=== PATIENT | male | born 1955 | race Two or more races ===

== ENCOUNTER 2018-01-30 10:46 | Emergency (ER) | payer OTHER ==
[2018-01-30 10:52] VITALS: PULSE 84; TEMP 97.8; BMI 24.0
--- NOTE | 2018-01-30 11:00 | PDOC ---
History of Present Illness - General Chief Complaint: Blood Sugar Problem Stated Complaint: BLOOD SUGAR PROBLEM - History of Present Illness Initial Comments: 01/30/18 10:57 62-year-old male with a history of insulin-dependent diabetes, hypertension, hyperlipidemia presents the emergency department with hyperglycemia. 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 Patient denies any symptoms of fevers, chills, abdominal pain, nausea or vomiting. The patient reports he ate apple pie for breakfast a few hours ago. He takes glipizide twice a day as well as Lantus at night and regular insulin at night depending on what his blood sugars. When he woke up this morning prior to breakfast his blood glucose was in the 100s. Denies chest pain, shortness of breath, dizziness, headache, focal weakness or numbness. Past History - Past Medical History Allergies/Adverse Reactions: Allergies Allergy/AdvReac Type Severity Reaction Status Date / Time Penicillins Allergy SWELLING Verified 01/30/18 10:47 RASH Home Medications: Ambulatory Orders Atorvastatin Ca [Lipitor] 10 mg PO HS 01/30/18 Glipizide 5 mg PO DAILY 01/30/18 Insulin Glargine,Hum.rec.anlog [Lantus] 15 unit SQ HS 01/30/18 Meloxicam 15 mg PO PRN PRN 01/30/18 Ramipril 5 mg PO DAILY 01/30/18 COPD: No Diabetes: Yes Hypercholesterolemia: Yes - Surgical History Appendectomy: Yes - Suicide/Smoking/Psychosocial Hx Smoking Status: No Smoking History: Never smoked Have you smoked in the past 12 months: Yes Number of Cigarettes Smoked Daily: 0 Cigars Per Day: 1 Information on smoking cessation initiated: No Hx Alcohol Use: No Drug/Substance Use Hx: No Review of Systems - Review of Systems Comments:: 01/30/18 10:59 GENERAL/CONSTITUTIONAL: No fever or chills. No weakness. HEAD, EYES, EARS, NOSE AND THROAT: No change in vision. No ear pain or discharge. No sore throat. GASTROINTESTINAL: No nausea, vomiting, diarrhea or constipation. GENITOURINARY: No dysuria, frequency, or change in urination. CARDIOVASCULAR: No chest pain or shortness of breath. RESPIRATORY: No cough, wheezing, or hemoptysis. MUSCULOSKELETAL: No joint or muscle swelling or pain. No neck or back pain. SKIN: No rash NEUROLOGIC: No headache, vertigo, loss of consciousness, or change in strength/ sensation. ENDOCRINE: No increased thirst. No abnormal weight change. HEMATOLOGIC/LYMPHATIC: No anemia, easy bleeding, or history of blood clots. ALLERGIC/IMMUNOLOGIC: No hives or skin allergy. *Physical Exam - Vital Signs Last Vital Signs Temp Pulse Resp BP Pulse Ox 97.8 F 84 18 167/69 100 01/30/18 10:48 01/30/18 10:48 01/30/18 10:48 01/30/18 10:48 01/30/18 10:48 - Physical Exam Comments: 01/30/18 10:59 GENERAL: Awake, alert, and fully oriented, in no acute distress HEAD: No signs of trauma EYES: PERRLA, EOMI, sclera anicteric, conjunctiva clear ENT: Auricles normal inspection, hearing grossly normal, nares patent, oropharynx clear without exudates. Moist mucosa NECK: Normal ROM, supple, no lymphadenopathy, JVD, or masses LUNGS: Breath sounds equal, clear to auscultation bilaterally. No wheezes, and no crackles HEART: Regular rate and rhythm, normal S1 and S2, no murmurs, rubs or gallops ABDOMEN: Soft, nontender, normoactive bowel sounds. No guarding, no rebound. No masses EXTREMITIES: Normal range of motion, no edema. No clubbing or cyanosis. No cords, erythema, or tenderness NEUROLOGICAL: Normal speech, cranial nerves intact, negative pronator drift, 5/ 5 strength in all 4 extremities, normal sensation to light touch in all 4 extremities, normal cerebellar exam, normal gait, normal reflexes and tone SKIN: Warm, Dry, normal turgor, no rashes or lesions noted. ED Treatment Course - LABORATORY CBC & Chemistry Diagram: 01/30/18 11:10 01/30/18 11:10 Medical Decision Making - Medical Decision Making 01/30/18 10:59 62-year-old male with a history of insulin-dependent diabetes, hypertension, hyperlipidemia presents with hyperglycemia to the 300s. Hypertensive in the emergency department, however other vitals are within normal limits. Exam is within normal limits. Differential includes hyperglycemia versus diabetic ketoacidosis. Plan -labs -UA -IVF -dispo 01/30/18 12:38 Labs consistent with non gap hyperglycemia rpt FS 300 Pt continues to feel well Rpt vitals with better BP Pt requests DC home I discussed the physical exam findings, ancillary test results and final diagnoses with the patient. I answered all of the patient's questions. The patient was satisfied with the care received and felt comfortable with the discharge plan and treatment plan. The patient will call their primary care physician within 24 hours to arrange follow-up and will return to the Emergency Department with any new, persistent or worsening symptoms. *DC/Admit/Observation/Transfer Diagnosis at time of Disposition: Hyperglycemia - Discharge Dispostion Disposition: HOME Condition at time of disposition: Stable Decision to Admit order: No - Referrals Referrals: Bora Castro MD [Primary Care Provider] - - Patient Instructions Printed Discharge Instructions: DI for Hyperglycemia -- Adult Additional Instructions: Follow-up with yoir primary care doctor within 2-3 days. Your blood sugar level was elevated in the emergency department. Make sure you discus with your doctor better control of your sugar levels. Return to the emergency department if you have any new, worsening or concerning symptoms. - Post Discharge Activity - Attestations Physician Attestion: 01/30/18 12:41 I, Dr. Danyelle Pineda MD, attest that this document has been prepared under my direction and personally reviewed by me in its entirety. I further attest, that it accurately reflects all work, treatment, procedures and medical decision -making performed by me.
[2018-01-30] MEDS ORDERED: SODIUM CHLORIDE 0.9% 1000 ML INFUS.BAG IV ONE (11:01)
[2018-01-30 11:20] LABS: BASO % 0.7 % (0-2.0); EOS % 2.4 % (0-4.5); HEMATOCRIT 41.1 % (35.4-49); HEMOGLOBIN 13.6 GM/dL (11.7-16.9); LYMPH % 28.1 % (8-40); MCH 28.9 pg (25.7-33.7); MCHC 33.1 g/dl (32.0-35.9); MEAN CELL VOLUME 87.4 fl (80-96); MEAN PLT VOLUME 6.9 fl (7.5-11.1); MONO % 9.3 % (3.8-10.2); NEUT % 59.5 % (42.8-82.8); PLATELET COUNT 314 K/MM3 (134-434); RDW 14.7 % (11.9-15.9); WHITE BLOOD COUNT 7.5 K/mm3 (4.0-10.0)
[2018-01-30 11:25] LABS: VENOUS PC02 47.9 mmHg (38-52); VENOUS PH 7.36 (7.32-7.42); VENOUS PO2 22.6 mmHg (28-48)
[2018-01-30 12:03] LABS: ALBUMIN 3.8 g/dl (3.4-5.0); ALK PHOS 125 U/L (45-117); ANION GAP 9 MMOL/L (8-16); BILIRUBIN,TOTAL 0.2 mg/dL (0.2-1.0); BLOOD UREA NITROGEN 12 mg/dL (7-18); CALCIUM 9.1 mg/dL (8.5-10.1); CHLORIDE 98 mmol/L (98-107); CO2 26 mmol/L (21-32); CREATININE 0.9 mg/dL (0.55-1.3); POTASSIUM 4.1 mmol/L (3.5-5.1); SGOT/AST 30 U/L (15-37); SGPT/ALT 56 U/L (13-61); SODIUM 133 mmol/L (136-145); TOT PROT 8.1 g/dl (6.4-8.2)
[2018-01-30 12:13] LABS: GLUCOSE,RANDOM 362 mg/dL (74-106)
[2018-01-30 12:35] VITALS: BP 133/74
== END 2018-01-30 12:45 | disposition home or self-care (01) ==
LOC: JER 10:46
PROC: 3E0337Z Introduction of Electrolytic and Water Balance Substance into Peripheral Vein, Percutaneous Approach (ICD-10-PCS; principal; 2018-01-30)
DX: E11.65 Type 2 diabetes mellitus with hyperglycemia (principal); I10 Essential (primary) hypertension; E78.5 Hyperlipidemia, unspecified; Z79.4 Long term (current) use of insulin
CPT/HCPCS: 36415; 80053; 82009; 82803; 82962; 85025; 99283-25; J7030